=== PATIENT | female | born 1955 | race Caucasian/White ===

== ENCOUNTER 2020-12-01 13:30 | Emergency (ER) | payer OTHER ==
[2020-12-01 13:51] VITALS: BP 123/85
[2020-12-01] MEDS ORDERED: IBUPROFEN 600 MG TABLET PO ONE (13:55)
--- NOTE | 2020-12-01 13:59 | ER Document Report ---
HPI - HPI Time Seen by Provider: 12/01/20 13:49 Context: Patient is a 65-year-old female presents emergency department with a chief complaint of left shoulder pain. States that she was turning off some water and stated a mechanical fall on her left shoulder. Patient has history of hypothyroidism, osteoporosis. - ROS Systems Reviewed and Negative: Yes All other systems reviewed and negative - CONSTITUTIONAL Constitutional: DENIES: Fever, Chills - MUSCULOSKELETAL Musculoskeletal: REPORTS: Extremity pain - left shoulder - DERM Skin Color: Normal Skin Problems: None Past Medical History - General Information source: Patient - Social History Smoking Status: Unknown if Ever Smoked Family History: Reviewed & Not Pertinent Vertical Provider Document - CONSTITUTIONAL Agree With Documented VS: Yes Exam Limitations: No Limitations General Appearance: No Apparent Distress - HEENT HEENT: Atraumatic, Normocephalic, PERRLA - NECK Neck: Normal Inspection - RESPIRATORY Respiratory: Breath Sounds Normal, No Respiratory Distress - CARDIOVASCULAR Cardiovascular: Regular Rate, Regular Rhythm Pulses: Normal: Radial - MUSCULOSKELETAL/EXTREMETIES Musculoskeletal/Extremeties: Tender - Tender left shoulder, No Edema. negative: FROM - Decreased to left shoulder joint - NEURO Level of Consciousness: Awake, Alert, Appropriate Motor/Sensory: No Motor Deficit, No Sensory Deficit - DERM Integumentary: Warm, Dry, No Rash Course - Re-evaluation Re-evalutation: 12/01/20 15:30 Patient has nondisplaced humerus fracture. Sling was given. Advised patient to follow-up with orthopedics. They are in agreement with this plan. Reviewed medication side effects. Daughter agrees to watch over patient. Capillary refill less than 3 seconds. Radial pulse 2+. No vascular compromise noted. Follow-up precautions were given. Verbal discharge instructions were given to the patient. They verbalized understanding. They are stable for discharge. - Vital Signs Vital signs: Temp Pulse Resp BP Pulse Ox 98.6 F 50 L 16 123/85 96 12/01/20 13:49 12/01/20 13:49 12/01/20 13:49 12/01/20 13:49 12/01/20 13:49 - Laboratory Results Critical Laboratory Results Reviewed: No Critical Results - Radiology Results Critical Radiology Results Reviewed: No Critical Results Procedures - Immobilization Left Arm Pre-Proc Neuro Vasc Exam: Normal Immobilizer type: Sling Performed by: PCT Post-Proc Neuro Vasc Exam: Normal, Unchanged from pre-exam Discharge - Discharge Clinical Impression: Fracture, humerus closed Qualifiers: Encounter type: initial encounter Humerus Location: proximal Fracture morphology: other fracture Fracture alignment: nondisplaced Laterality: left Qualified Code(s): S42.295A - Other nondisplaced fracture of upper end of left humerus, initial encounter for closed fracture Condition: Stable Disposition: HOME, SELF-CARE Additional Instructions: You were seen today in the emergency department with left shoulder pain. You have a fracture. Keep the sling on. Follow-up with orthopedics tomorrow. The medication that you are prescribed can make you sleepy. Do not take too many. Only take 1 tablet every 6 hours as needed for pain. Prescriptions: Hydrocodone/Acetaminophen [[place] 5-325 mg Tablet] 1 tab PO ASDIR PRN #6 tablet PRN Reason: Referrals: TERRELL DOWELL JR, DO [ACTIVE PROVISIONAL STAFF] - Follow up tomorrow WILLIAM VINSE MD [NO LOCAL MD] - Follow up tomorrow VALDO PACE MD [ACTIVE STAFF] - Follow up tomorrow
--- NOTE | 2020-12-01 14:32 | RADIOLOGY REPORT (SQ) ---
EXAM DESCRIPTION: ELBOW LEFT OVER 2 VIEWS IMAGES COMPLETED DATE/TIME: 12/01/2020 2:16 pm REASON FOR STUDY: fall; arm pain COMPARISON: None. EXAM PARAMETERS: NUMBER OF VIEWS: Three views. TECHNIQUE: AP, lateral and oblique radiographic images acquired of the left elbow. LIMITATIONS: Oblique positioning on all views. FINDINGS: MINERALIZATION: Osteopenia. BONES: Subtle irregularity of the radial head-neck. JOINTS: No effusion. SOFT TISSUES: No significant soft tissue swelling. No radiopaque foreign body. OTHER: No other significant finding. IMPRESSION: Subtle irregularity of the radial head-neck, possible nondisplaced fracture.Oblique posi tioning on all views. TECHNICAL DOCUMENTATION: JOB ID: [id number] [id number] 2010 [employer]- All Rights Reserved Reading location - IP/workstation name: [facility]
--- NOTE | 2020-12-01 14:35 | RADIOLOGY REPORT (SQ) ---
EXAM DESCRIPTION: SHOULDER LEFT 2 OR MORE VIEWS IMAGES COMPLETED DATE/TIME: 12/01/2020 2:16 pm REASON FOR STUDY: fall; shoulder pain COMPARISON: None. EXAM PARAMETERS: NUMBER OF VIEWS: Three views. TECHNIQUE: AP, lateral and oblique radiographic images acquired of the left shoulder LIMITATIONS: All images are held in oblique positions. FINDINGS: MINERALIZATION: Normal. BONES: No glenohumeral dislocation. Nondisplaced fracture in the proximal humerus -greater tuberosit y. SOFT TISSUES: No significant soft tissue swelling. No radiopaque foreign body. OTHER: No other significant finding. IMPRESSION: Nondisplaced fracture in the proximal humerus -greater tuberosity. TECHNICAL DOCUMENTATION: JOB ID: [id number] 2010 [employer]- All Rights Reserved Reading location - IP/workstation name: [email or web address]
--- OUTSIDE RECORDS SUMMARY | 2020-12-03 10:44 | XMS REPORT ---
:1955 [facility] [place] [address] [place] [id number] Care Team Providers Name Role Phone Diane Petersen Primary Care Physician Unavailable Allergies, Adverse Reactions, Alerts Allergy Name Allergy Status Severity Reaction(s) Onset Inactive Treat ing Comments Type Date Date Clinician Corticosteroi Allergy to Active Mild Edema ds substance (Glucocortico ids) Medications Ordered Filled Start Stop Current Ordering Indication Dosage Frequency Signature Comments Components Medication Medication Date Date Medication? Clinician (SIG) Name Name Synthroid 0 Yes Jack 1 QD Synthroid 112 MCG 05-30 Cano 112 MCG Oral Tablet 00:00: D.O. Oral 00 Tablet TAKE 1 TABLET DAILY. Refills: 0 Jack Cano D.O. Start : 0Active Levothyroxi 0 No Jack Levothyrox ne Sodium 05-29 Rachael ine Sodium 175 MCG 00:00: D.O. 175 MCG Oral Tablet 00 Oral Tablet Take 1 tablet by mouth once daily Quantity: 90 Refills: 0 Jack Cano D.O. Start : 0Active Colace 100 No 1capsul TID Colace 100 mg capsule e(s) mg capsule Take 1 Take 1 capsule 3 capsule 3 times a day times a by oral day by route for oral route 90 days. for 90 days. cyanocobala No 1capsul Q1D cyanocobal min e(s) corley (vitamin (vitamin B-12) 1,000 B-12) mcg capsule 1,000 mcg Take 1 capsule capsule Take 1 every day capsule by oral every day route. by oral route. duloxetine No 1capsul Q1D duloxetine 30 mg e(s) 30 mg capsule,del capsule,de ayed layed release release Take 1 Take 1 capsule capsule every day every day by oral by oral route. route. furosemide No 1 Q1D furosemide 20 mg 20 mg tablet Take tablet 1 tablet Take 1 every day tablet by oral every day route as by oral needed. route as needed. Synthroid No 1 Q1D Synthroid 112 mcg 112 mcg tablet Take tablet 1 tablet Take 1 every day tablet by oral every day route. by oral route. Zoloft 50 No 1 Q1D Zoloft 50 mg tablet mg tablet Take 1 Take 1 tablet tablet every day every day by oral by oral route. route. ciclopirox No ciclopirox 8 % topical 8 % solution topical APPLY TO solution THE APPLY TO AFFECTED THE AREA(S) BY AFFECTED TOPICAL AREA(S) BY ROUTE ONCE TOPICAL DAILY ROUTE ONCE PREFERABLY DAILY AT BEDTIME PREFERABLY OR 8 HOURS AT BEDTIME BEFORE OR 8 HOURS WASHING BEFORE WASHING Claritin 10 No 1 Q1D Claritin mg tablet 10 mg Take 1 tablet tablet Take 1 every day tablet by oral every day route. by oral route. ibuprofen No 1 TID ibuprofen 800 mg 800 mg tablet Take tablet 1 tablet 3 Take 1 times a day tablet 3 by oral times a route as day by needed. oral route as needed. Synthroid No 1 Q1D Synthroid 125 mcg 125 mcg tablet Take tablet 1 tablet Take 1 every day tablet by oral every day route. by oral route. Vitamin D2 No 1capsul Q1W Vitamin D2 1,250 mcg e(s) 1,250 mcg (50,000 (50,000 unit) unit) capsule capsule Take 1 Take 1 capsule capsule every week every week by oral by oral route. route. Euthyrox No Euthyrox 112 mcg 112 mcg tablet TAKE tablet 1 TABLET BY TAKE 1 MOUTH ONCE TABLET BY DAILY MOUTH ONCE DAILY Euthyrox No Euthyrox 125 mcg 125 mcg tablet TAKE tablet 1 TABLET BY TAKE 1 MOUTH ONCE TABLET BY DAILY MOUTH ONCE DAILY hydrocodone No 1 Q6H hydrocodon 5 e 5 mg-acetamin mg-acetami ophen 325 nophen 325 mg tablet mg tablet Take 1 Take 1 tablet tablet every 6 every 6 hours by hours by oral route oral route as needed. as needed. 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 00 Joint pain Joint pain Problem Active of lower of lower extremity extremity Low vitamin Low vitamin Problem Active D level D level Abnormal Abnormal Problem Active gait gait Gait, Gait, Problem Active broad-based broad-based Cautious Cautious Problem Active gait gait Dyspnea Dyspnea Problem Active 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, disorder, mild, abuse mild, abuse Abnormal Abnormal Problem Active urinalysis urinalysis Cigarette Cigarette Problem Active nicotine nicotine dependence dependence with with nicotine-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 Hepatitis C Hepatitis C Problem Active antibody antibody test test positive positive Osteopenia Osteopenia Problem Active of multiple of multiple sites sites Chronic Chronic Problem Active pain of pain of multiple multiple joints joints Procedures Procedure Date / Time Performed Performing Clinician Abdullahi alcala pulse oximetry (PROC) 2020-12-02 00:00:00 pulse oximetry (PROC) 2020-11-06 00:00:00 pulse oximetry (PROC) 2020-10-21 00:00:00 L - Hepatitis C Virus (HCV) RNA, 2020-05-30 00:00:00 Qualitative, MING With Reflex to Quantitative PCR CBC 2020-05-29 00:00:00 CMP(Complete Metabolic Panel) 2020-05-29 00:00:00 CRP 2020-05-29 00:00:00 Free T4 2020-05-29 00:00:00 L - CCP Antibodies IgG/IgA 2020-05-29 00:00:00 L - Chlamydia/GC Amplification 2020-05-29 00:00:00 L - Doctor Wendys Hepatitis Panel 2020-05-29 00:00:00 (HP4+HBsAb) L - HLA B 27 Disease Association 2020-05-29 00:00:00 L - QuantiFERON Client Incubated 2020-05-29 00:00:00 Rheumatoid Factor 2020-05-29 00:00:00 Sed Rate 2020-05-29 00:00:00 TSH 2020-05-29 00:00:00 Uric Acid 2020-05-29 00:00:00 Urinalysis 2020-05-29 00:00:00 L - Prot+CreatU (Random) 2020-05-29 00:00:00 L - YASMEEN w/Reflex if Positive 2020-05-29 00:00:00 Vitamin D Total 2020-05-29 00:00:00 Vitamin B12 2020-05-29 00:00:00 L - Drug Profile (12) Screen & 2020-05-29 00:00:00 Confirm, Urine Urine Culture 2020-05-29 00:00:00 Breast Biopsy 2006-11-08 00:00:00 History of Exploratory laparoscopy History of Eye surgery CONT PAS MOTION EXERCISE DEV Eye Surgery Lumpectomy of Breast Tubal Ligation Results Test Description Test Time Test Comments Text Results Atomic Results Result Comments Lipid 1996 panel - Serum or Plasma 2020-10-22 00:00:00 Test Item Value Reference Range Comments Cholesterol [Mass/volume] in Serum or Plasma (test code 265 mg/d L <200 = 2093-3) Cholesterol in HDL [Mass/volume] in Serum or Plasma 63 mg/dL > or = 50 (test code = 2085-9) Triglyceride [Mass/volume] in Serum or Plasma (test code 66 mg/d L <150 = 2571-8) Cholesterol in LDL [Mass/volume] in Serum or Plasma by 185 mg/dL (calc) calculation (test code = 52545-6) Cholesterol.total/Cholesterol.in HDL [Mass ratio] in 4.2 (calc) <5.0 Serum or Plasma (test code = 9830-1) Cholesterol in LDL/Cholesterol in HDL [Mass Ratio] in 2.9 (calc) Serum or Plasma (test code = 47194-1) Cholesterol non HDL [Mass/volume] in Serum or Plasma 202 mg/dL ( calc) <130 (test code = 64843-0) Comprehensive metabolic 2000 panel - Serum or [id number] 00:00:00 Test Item Value Reference Range Comments Glucose [Mass/volume] in Serum or Plasma 107 mg/dL 65-99 (test code = 2345-7) Urea nitrogen [Mass/volume] in Serum or 19 mg/dL 7-25 Plasma (test code = 3094-0) Creatinine [Mass/volume] in Serum or Plasma 0.93 mg/dL 0.50 -0.99 (test code = 2160-0) Glomerular filtration rate/1.73 sq 64 mL/min/1.73m2 > or = 60 M.predicted [Volume Rate/Area] in Serum, Plasma or Blood by Creatinine-based formula (MDRD) (test code = 14775-9) Glomerular filtration rate/1.73 sq 75 mL/min/1.73m2 > or = 60 M.predicted among blacks [Volume Rate/Area] in Serum, Plasma or Blood by Creatinine-based formula (MDRD) (test code = 72889-6) Urea nitrogen/Creatinine [Mass Ratio] in not applicable 6-22 Serum or Plasma (test code = 3097-3) Sodium [Moles/volume] in Serum or Plasma 142 mmol/L 135-146 (test code = 2951-2) Potassium [Moles/volume] in Serum or Plasma 3.9 mmol/L 3.5- 5.3 (test code = 2823-3) Chloride [Moles/volume] in Serum or Plasma 110 mmol/L 98-11 0 (test code = 2075-0) Carbon dioxide, total [Moles/volume] in 21 mmol/L 20-32 Serum or Plasma (test code = 2027-9) Calcium [Mass/volume] in Serum or Plasma 9.1 mg/dL 8.6-10. 4 (test code = 58810-0) Protein [Mass/volume] in Serum or Plasma 7.2 g/dL 6.1-8.1 (test code = 2885-2) Albumin [Mass/volume] in Serum or Plasma 4.3 g/dL 3.6-5.1 (test code = 1751-7) Globulin [Mass/volume] in Serum by 2.9 g/dL (calc) 1.9-3.7 calculation (test code = 72866-6) Albumin/Globulin [Mass Ratio] in Serum or 1.5 (calc) 1.0-2. 5 Plasma (test code = 1759-0) Bilirubin.total [Mass/volume] in Serum or 0.4 mg/dL 0.2-1. 2 Plasma (test code = 1974-) Alkaline phosphatase [Enzymatic 43 U/L 37-153 activity/volume] in Serum or Plasma (test code = 6768-6) Aspartate aminotransferase [Enzymatic 13 U/L 10-35 activity/volume] in Serum or Plasma (test code = 1920-8) Alanine aminotransferase [Enzymatic 8 U/L 6-29 activity/volume] in Serum or Plasma (test code = 1742-6) CBC W Auto Differential panel - [id number] 00:00:00 Test Item Value Reference Range Comments Leukocytes [#/volume] in Blood by Automated 5.2 thousand/uL 3.8- 10.8 count (test code = 6690-2) Erythrocytes [#/volume] in Blood by 4.88 million/uL 3.80-5.10 Automated count (test code = 789-8) Hemoglobin [Mass/volume] in Blood (test code 14.3 g/dL 11. 7-15.5 = 718-7) Hematocrit [Volume Fraction] of Blood by 43.3 % 35.0-45 .0 Automated count (test code = 4544-3) Erythrocyte mean corpuscular volume [Entitic 88.7 fL 80. 0-100.0 volume] by Automated count (test code = 787-2) Erythrocyte mean corpuscular hemoglobin 29.3 pg 27.0-33. 0 [Entitic mass] by Automated count (test code = 785-6) Erythrocyte mean corpuscular hemoglobin 33.0 g/dL 32.0-36. 0 concentration [Mass/volume] by Automated count (test code = 786-4) Erythrocyte distribution width [Ratio] by 13.4 % 11.0-1 5.0 Automated count (test code = 788-0) Platelets [#/volume] in Blood by Automated 197 thousand/uL 140-4 00 count (test code = 777-3) Platelet mean volume [Entitic volume] in 10.4 fL 7.5-12. 5 Blood by Chema (test code = 776-5) Neutrophils [#/volume] in Blood by Automated 3073 cells/uL 150 0-7800 count (test code = 751-8) Lymphocytes [#/volume] in Blood by Automated 1617 cells/uL 850 -3900 count (test code = 731-0) Monocytes [#/volume] in Blood by Automated 380 cells/uL 200-9 50 count (test code = 742-7) Eosinophils [#/volume] in Blood by Automated 88 cells/uL 15- 500 count (test code = 711-2) Basophils [#/volume] in Blood by Automated 42 cells/uL 0-200 count (test code = 704-7) Neutrophils/100 leukocytes in Blood by 59.1 % Automated count (test code = 770-8) Lymphocytes/100 leukocytes in Blood by 31.1 % Automated count (test code = 736-9) Monocytes/100 leukocytes in Blood by 7.3 % Automated count (test code = 5905-5) Eosinophils/100 leukocytes in Blood by 1.7 % Automated count (test code = 713-8) Basophils/100 leukocytes in Blood by 0.8 % Automated count (test code = 706-2) Triiodothyronine (T3) [Mass/volume] in Serum or [id number] 00:00:00 Test Item Value Reference Range Comments Triiodothyronine (T3) [Mass/volume] in Serum or 68 NG/dL 76-181 Plasma (test code = 3053-6) Thyroxine (T4) free [Mass/volume] in Serum or [id number] 00:00:00 Test Item Value Reference Range Comments Thyroxine (T4) free [Mass/volume] in Serum or 1.1 NG/dL 0. 8-1.8 Plasma (test code = 3024-7) Thyrotropin [Units/volume] in Serum or [id number] 00:00:00 Test Item Value Reference Range Comments Thyrotropin [Units/volume] in Serum or Plasma 9.79 mIU/L 0. 40-4.50 (test code = 3016-3) Folate+Cyanocobalamin [Interpretation] in Serum or [id number] 00:00:00 Test Item Value Reference Range Comments Cobalamin (Vitamin B12) [Mass/volume] in Serum or 612 pg/mL 200-1100 Plasma (test code = 2132-9) Folate [Mass/volume] in Serum or Plasma (test 10.1 NG/mL code = 2284-8) 25-Hydroxyvitamin D3+25-Hydroxyvitamin D2 [Mass/volume] in Serum or Plasma 2020-10-22 00:00:00 Test Item Value Reference Range Comments 25-hydroxyvitamin D3 [Mass/volume] in Serum or 22 NG/mL 3 0-100 Plasma (test code = 1989-3) Hemoglobin A1c/Hemoglobin.total in [id number] 00:00:00 Test Item Value Reference Range Comments Hemoglobin A1c/Hemoglobin.total in Blood 4.9 % of total HGB <5.7 (test code = 4548-4) Urine [id number] 11:26:00 Test Item Value Reference Range Comments Final Report (test Microbiology results [place] [facility][05/31/2020 code = Final Report) 9:05 AM PA] >100,000 cfu/mlResult[05/09 9:05 AM PA] Mixe d culture, suggestive of contamination. P lease resubmit if nece ssary., No Further Work-up CMP(Complete Metabolic Panel)2020-05-29 11:05:00 Test Item Value Reference Range Comments Glucose (test code = Glucose) 106 mg/dL 74-106 Sodium (test code = Sodium) 142 mmol/L 135-145 Potassium (test code = Potassium) 3.2 mmol/L 3.5-5.3 Chloride (test code = Chloride) 104 mmol/L 98-107 CO2 (test code = CO2) 26 mmol/L 22-30 Creatinine, serum (test code = Creatinine, serum) 0.80 mg/dL 0.10-1.04 Glomerular Filtration Rate (test code = >60 >60 Glomerular Filtration Rate) Glomerular Filtration Rate AA (test code = >60 >60 Glomerular Filtration Rate AA) Blood Urea Nitrogen (test code = Blood Urea 15 mg/dL 7-17 Nitrogen) Calcium (test code = Calcium) 10.1 mg/dL 8.4-10.5 Phosphorus (test code = Phosphorus) 3.0 mg/dL 2.5-4.5 Total Protein (test code = Total Protein) 8.5 g/dL 6.3-8. 2 Albumin; Above High Threshold (test code = 5.2 g/dL 3.5-5 .0 30247-1) Total Bilirubin (test code = Total Bilirubin) 0.8 mg/dL 0. 2-1.3 Bilirubin, unconj (test code = Bilirubin, unconj) 0.5 mg/dL 0.0-1.1 Bilirubin, Direct (test code = Bilirubin, Direct) 0.3 mg/dL 0.0-0.4 Alkaline Phosphatase (test code = Alkaline 66 U/L 20-15 0 Phosphatase) Alanine Transaminase (test code = Alanine 22 U/L 0-35 Transaminase) Aspartate Aminotransferase (test code = Aspartate 38 U/L 3-36 Aminotransferase) [id number] 11:05:00 Test Item Value Reference Range Comments C-Reactive Protein (test code = C-Reactive Protein) <5 <10 Free [id number] 11:05:00 Test Item Value Reference Range Comments Free T4 (test code = Free T4) 1.84 ng/dL 0.78-2.19 Rheumatoid [id number] 11:05:00 Test Item Value Reference Range Comments Rheumatoid Factor (test code = Rheumatoid Factor) 9 {IU/mL} <11 Thyroid Stimulating [id number] 11:05:00 Test Item Value Reference Range Comments Thyroid Stimulating Hormone (test code = 14.70 {mIU/mL} 0.46-4. 68 Thyroid Stimulating Hormone) Uric [id number] 11:05:00 Test Item Value Reference Range Comments Uric Acid (test code = Uric Acid) 4.6 mg/dL 2.5-6.2 Vitamin D [id number] 11:05:00 Test Item Value Reference Range Comments Vitamin D, total (test code = Vitamin D, total) 43 ng/mL 30-100 Vitamin [id number] 11:05:00 Test Item Value Reference Range Comments Vitamin B12 (test code = Vitamin B12) 727 pg/mL 239-931 [id number] 10:52:00 Test Item Value Reference Range Comments Urine Color (test code = Urine YELLOW Yellow Color) Urine Clarity (test code = CLEAR Clear Urine Clarity) Urine Glucose (test code = NEGATIVE Negative Urine Glucose) Urine Ketones (test code = TRACE Negative Urine Ketones) Urine Bilirubin (test code = SMALL Negative Genny ble to perform Ictotest Urine Bilirubin) due to reagent unavailable from manufacture r. Urine Specific [place] (test 1.030 1.010-1.030 URI NE MICROSCOPIC: 6-10 code = Urine Specific [place]) W BCS,3-5 RBCS,MODERATE BACTERIA Urine Blood (test code = Urine SMALL Negative Blood) Urine pH (test code = Urine 6.0 5.0-8.0 pH) Urine Protein (test code = 30 mg/dL Negative Urine Protein) Urine Urobilinogen (test code 2.0 Eu/dl 0.2 = Urine Urobilinogen) Urine Nitrites (test code = NEGATIVE Negative Urine Nitrites) Urine Leukocytes (test code = NEGATIVE Negative Urine Leukocytes) [id number] 10:52:00 Test Item Value Reference Range Comments White Blood Cell (test code = White Blood Cell) 10.1 K/uL 3.5-11.1 Red Blood Cell (test code = Red Blood Cell) 5.15 {M/uL} 3.69 -4.87 Hemoglobin (test code = Hemoglobin) 14.8 g/dL 11.4-14.4 Hematocrit (test code = Hematocrit) 45 % 33-41 Mean Corpuscular Volume (test code = Mean 87.8 fL 79.0-9 5.0 Corpuscular Volume) Mean Corpuscular Hemoglobin (test code = Mean 28.7 pg/mL 27 .0-33.0 Corpuscular Hemoglobin) Mean Corpuscular Hemoglobin Concentration (test 32.7 g/dL 33.5-35.5 code = Mean Corpuscular Hemoglobin Concentration) Red Cell Distribution Width (test code = Red 13.6 % 12. 0-15.0 Cell Distribution Width) Platelet (test code = Platelet) 203 K/uL 130-353 Mean Platelet Volume (test code = Mean Platelet 10.2 fL 7.5-10.7 Volume) Neutrophil Count, absolute (test code = 8.6 K/uL 1.9-7.2 Neutrophil Count, absolute) Neutrophil Count Percentage (test code = 84.9 % 43.0-72 .0 Neutrophil Count Percentage) Lymphocyte Count, absolute (test code = 0.8 K/uL 1.1-2.7 Lymphocyte Count, absolute) Lymphocyte Count Percentage (test code = 8.0 % 17.0-44 .0 Lymphocyte Count Percentage) Monocyte Count, absolute (test code = Monocyte 0.6 K/uL 0 .3-0.8 Count, absolute) Monocyte Count Percentage (test code = Monocyte 6.3 % 4.5-12.4 Count Percentage) Eosinophil Count, absolute (test code = 0.0 K/uL 0.0-0.5 Eosinophil Count, absolute) Eosinophil Count Percentage (test code = 0.2 % 0.7-7.8 Eosinophil Count Percentage) Basophil Count, absolute (test code = Basophil 0.0 K/uL 0 .0-0.1 Count, absolute) Basophil Count Percentage (test code = Basophil 0.3 % 0.2-1.1 Count Percentage) Nucleated Red Blood Cell, absolute (test code = 0.00 K/uL 0.00-0.00 Nucleated Red Blood Cell, absolute) Nucleated Red Blood Cell, percentage (test code 0.00 % 0.00-0.00 = Nucleated Red Blood Cell, percentage) Sed [id number] 10:52:00 Test Item Value Reference Range Comments Erythrocyte Sedimentation Rate (test code = 5 {mm/hr} 0-30 Erythrocyte Sedimentation Rate) Hep A Ab, [id number] 10:52:00 Test Item Value Reference Range Comments Hep A Ab, IgM (test code = Negative Negative 21687-5) HBsAg Screen (test code = Negative Negative 5196-1) Hep B Core Ab, IgM (test Negative Negative code = 06700-5) Hep B Surface Ab, Qual Reactive Non (test code = 92860-2) Reactive: Inconsistent with immunity, less than 10 mIU/mL Reactive: C onsistent with immunity, greater than 9.9 mIU/mL Comment: (test code = Comment 0.0-0.9 Strong zac ctive antibody screen 72934-1) (s/c ratio >10.9 ) isconsistent with past or pre sent HCV infection. Foll ow-uptesting by HCV, Quantitativ e, Real time PCR (#[id number]) isreco mmended to determine viral load/diagnosis of currentHCV infec tion. [facility] performed at: [] [address], [address], , Civil Engineer Helper: Arlene Coe MDLabcorp - YASMEEN w/Reflex if [id number] 10:52:00 Test Item Value Reference Range Comments YASMEEN Direct (test code = 8061-4) Negative Negative [facility] performed at: [] [address], [address], , Civil Engineer Helper: ISAIAS Andinoreatinine, [id number] 10:52:00 Test Item Value Reference Range Comments Creatinine, Urine (test code = 2161-8) 266.2 mg/dL Not Estab . Protein,Total,Urine (test code = 2888-6) 71.8 mg/dL Not Est ab. Protein/Creat Ratio (test code = 270 {mg/g creat} 0-200 Protein/Creat Ratio) [facility] performed at: [] [address], [address], , Civil Engineer Helper: Arlene Coe MDL - CCP Antibodies [id number] 10:52:00 Test Item Value Reference Range Comments CCP Antibodies IgG/IgA (test 5 {Units} 0-19 code = 44522-3) Nega tive <20 Weak positive 20 - 39 Moderate pos itive 40 - 59 [facility] >59 [facility] at: [] [address], [address], , Civil Engineer Helper: Arlene Coe MDQuantiFERON [id number] 10:52:00 Test Item Value Reference Range Comments QuantiFERON Criteria (test Comment The Q uantiFERON-TB Gold Plus code = QuantiFERON result is det ermined Criteria) bysubtracting th e Nil value from either TB a ntigen (Ag) tube.The mitogen tube serves as a control for the test. QuantiFERON TB1 Ag Value 0.02 {IU/mL} (test code = QuantiFERON TB1 Ag Value) QuantiFERON TB2 Ag Value 0.01 {IU/mL} (test code = QuantiFERON TB2 Ag Value) QuantiFERON Nil Value (test 0.01 {IU/mL} code = QuantiFERON Nil Value) QuantiFERON Mitogen Value 4.96 {IU/mL} (test code = QuantiFERON Mitogen Value) QuantiFERON-TB Gold Plus Negative Negative The spe cimen received for (test code = QuantiFERON-TB Tyson tiFERON testing was Gold Plus) incubatedby the ordering institution. Sp ecific procedures outli nedin our Directory of Ser vices and in the package inse rt forthe QuantiFERON Gold (In Tube) test must be fol lowed toenable for pro per stimulation of deisy keenan for the productionof int erferon gamma. [facility] performed at: [BN] [address], [address], , Civil Engineer Helper: Arlene Coe MDL - Chlamydia/GC [id number] 10:52:00 Test Item Value Reference Range Comments Chlamydia trachomatis, MING (test code = 47245-4) Negative Negative Neisseria gonorrhoeae, MING (test code = 28122-3) Negative Negative [facility] at: [] [address], [address], , Civil Engineer Helper: Arlene Coe [facility] performed at: [BN] [address], [address], , Civil Engineer Helper: Arlene Coe MDL - Drug Profile (12) Screen & Confirm, [id number] 10:52:00 Test Item Value Reference Range Comments Ethanol, Urine (test Negative Cutoff=0.020 code = Ethanol, Urine) Amphetamines, Urine Negative Iywuwt=0326 Amphetamine test includes (test code = 75987-9) Amphetamin e and Methamphetamine. Barbiturate (test code Negative Exgegm=738 = Barbiturate) Benzodiazepines (test Negative Swvrwk=223 code = Benzodiazepines) Cannabinoids (test See Final Cutoff=20 code = Cannabinoids) Results Cannabinoid (test code Positive Cutoff=20 = Cannabinoid) Carboxy THC GC/MS Conf >400 Cutoff=10 (test code = Carboxy THC GC/MS Conf) Cocaine (Metabolite) Negative Cullld=219 (test code = Cocaine (Metabolite)) Opiates (test code = Negative Qohmma=887 Opiate test includes Codeine, 75236-3) Morphine, Hydrom orphone, Hydrocodone. Oxycodone/Oxymorphone, Negative Yjvarb=269 Test incl udes Oxycodone and Urine (test code = Oxymorphone 56096-0) Phencyclidine (test Negative Cutoff=25 code = Phencyclidine) Methadone (test code = Negative Tjjvjq=206 Methadone) Propoxyphene (test Negative Rldpch=445 code = Propoxyphene) Meperidine (test code Negative Yeotul=869 This test was developed and its = Meperidine) performance characteristicsd etermined by [facility]. It has not been cleared orapproved by [facility] Food and Drug Administration. Tramadol (test code = Negative Kphqxz=150 Tramadol) Creatinine, Urine 280.7 mg/dL 20.0-300.0 (test code = 2161-8) [facility] performed at: [UI] [facility], [address] [place] [address], [address], , Civil Engineer Helper: Zeinab Gómez, PhDLab[facility] - HLA B 27 Disease [id number] 10:52:00 Test Item Value Reference Range Comments HLA-B27 (test code = Negative HLA-B*27 Ne oihnlfN74 allele 92079-8) interpretation f or all loci based on IMGT/HLAdatabase version 3.38This test was developed an d its performance characteristicsd etermined by [facility]. It has not been cleared or approvedby the Food and Anastacio g Administration.[facility] Lab CLIA ID Number [id number] test was performed using PCR (Polymerase ChainReaction)/S SOP (Sequence Specific Oligonucleotide Probes)technique. SBT (Sequence Based Typing) and/or SSP(Sequence Spe cific Primers) may be used as suppleme ntalmethods when necessary. Plea se contact HLA CustomerService at if you have any questio ns. Director of HLA Laboratory Dr Napoleon Hoang, PhD [facility] performed at: [2Q] [facility], [address] [place] [address], [phone], , Civil Engineer Helper: Palomo Hoang, PhD Assessments Condition Name Status Diagnosis Date Treating Clinici an Closed fracture of upper end of humerus Active 10:43:54 Pain in left arm Active 2020-12-02 13:26:54 Falling injury Active 2020-12-02 13:27:00 Hypothyroidism Active 2020-11-06 12:55:16 Vitamin D deficiency Active 2020-11-06 12:56:19 Cobalamin deficiency Active 2020-11-06 12:09:39 Allergic rhinitis Active 2020-11-06 12:56:48 Generalized anxiety disorder Active 2020-11-06 16:06:50 Chronic constipation Active 2020-10-21 11:44:01 Cobalamin deficiency Active 2020-10-21 12:14:10 Chronic pain syndrome Active 2020-10-21 12:14:53 Central pontine myelinolysis Active 2020-10-21 12:15:03 Edema Active 2020-10-21 12:15:07 Hypothyroidism Active 2020-10-21 11:43:59 Anxiety Active 2020-10-21 11:44:00 B12 deficiency Active Low vitamin D level Active History of marijuana use Active Osteopenia of multiple sites Active Tetrahydrocannabinol (THC) use Active disorder, mild, abuse Gait, broad-based Active Chronic pain of multiple joints Active Cigarette nicotine dependence with Active nicotine-induced disorder Family history of arthritis Active Joint pain of lower extremity Active Active Dyspnea Active Abnormal gait Active Hyponatremia Active Family history of amyotrophic lateral Active sclerosis Cautious gait Active History of depression Active Encounters Start End Encounter Admission Attending Care Care Encounter Date/Time Date/Time Type Type Clinicians Facility Department ID 2020-12-02 2020-12-02 [facility] [id number] 00:00:00 00:00:00 PRICILA Sharma: [facility] & [address] [place] [address], Ph. 2020-11-06 2020-11-06 [facility] [id number] 00:00:00 00:00:00 PRICILA Sharma: [facility] & [address] [place] [address], Ph. 2020-10-21 2020-10-21 [facility] [id number] 00:00:00 00:00:00 PRICILA Sharma: [facility] & [address] [place] [address], [place] [address], Ph. 2020-10-01 2020-10-01 Appointment [facility] [id number] 10:00:00 10:46:00 ; Jack Cano D.O. 2020-10-01 2020-10-01 Appointment [facility] [id number] 09:00:00 09:00:00 ; Pulmonary, Functions 2020-05-29 2020-05-29 Appointment [facility] [id number] 09:00:00 09:00:00 ; Jack Cano D.O. Family History Family Member Diagnosis Comments Start Date Stop Date Mother Family history of arthritis Father Family history of arthritis Sister Family history of amyotrophic lateral sclerosis Immunizations Ordered Immunization Filled Immunization Date Status Commen ts Refusal Reason Name Name zoster recombinant Unknown Completed Plan of Treatment Planned Activity Planned Date Details Comments Future Appointment 2021-02-20 09:00:[address]; , [place] [address] Future Appointment 2020-12-24 10:30:00 Cong Sharma [address] [place] [address]; , [place] [address] Future Appointment 2020-12-17 10:00:00 Nurse, [address] [place] [address] ; , [place] [address] Social History Smoking Status Start Date Stop Date Smoker (finding) Never Smoker Vital Signs Vital Name Observation Time Observation Value Comments BP Diastolic 2020-12-02 00:00:00 78 mm[Hg] Height 2020-12-02 00:00:00 62 [in_i] BMI (Body Mass Index) 2020-12-02 00:00:00 21 kg/m2 BP Systolic 2020-12-02 00:00:00 128 mm[Hg] Body Weight 2020-12-02 00:00:00 115 [lb_av] BP Diastolic 2020-11-06 00:00:00 94 mm[Hg] Height 2020-11-06 00:00:00 62 [in_i] BMI (Body Mass Index) 2020-11-06 00:00:00 20.1 kg/m2 BP Systolic 2020-11-06 00:00:00 174 mm[Hg] Body Weight 2020-11-06 00:00:00 109.8 [lb_av] BP Diastolic 2020-10-21 00:00:00 81 mm[Hg] Height 2020-10-21 00:00:00 62 [in_i] BMI (Body Mass Index) 2020-10-21 00:00:00 20.4 kg/m2 BP Systolic 2020-10-21 00:00:00 147 mm[Hg] Body Weight 2020-10-21 00:00:00 111.6 [lb_av] Systolic blood pressure 2020-05-29 10:08:00 110 mm[Hg] Diastolic blood pressure 2020-05-29 10:08:00 70 mm[Hg] Body height 2020-05-29 10:08:00 62 [in_us] Weight 2020-05-29 10:08:00 105.375 [lb_av] Body mass index (BMI) [Ratio] 2020-05-29 10:08:00 19.27 kg/m2 Body temperature 2020-05-29 10:08:00 97.3 [degF] Heart Rate 2020-05-29 10:08:00 70 /min Respiratory rate 2020-05-29 10:08:00 16 /min O2 SAT 2020-05-29 10:08:00 99 % Source: Hospital Discharge Instructions 1. Hypothyroidism Synthroid 112 mcg tablet pulse oximetry (PROC) 2. Anxiety Zoloft 50 mgtablet 3. Chronic constipation Colace 100 mg capsule 4. Cobalamin deficiency cyanocobalamin (vitamin B-12) 1,000 mcg capsule 5. Chronic pain syndrome 6. Central pontine myelinolysis 7. Edema furosemide 20 mg tablet leg and ankle edema: care instructions Discussion Note Complexity of Patient Visit: Moderate Due to current active problems, medications required and patient education Established Patient/Med Check & Follow-up Care Visit. Reviewed pertinent diagnoses at length including counseling and reassurance. Discussed risks, potential side effects and benefits of current treatment plan and medications. All patient questions and concerns were addressed and answered. Patient verbalized understanding and agreement with treatment plans. NameDatesDetailsInstructions not documentedNameDatesDetailsInstructions not documented
== END 2020-12-01 15:24 | disposition home or self-care (01) ==
LOC: ER 13:30
DX: S42.255A Nondisplaced fracture of greater tuberosity of left humerus, initial encounter for closed fracture (principal); W18.2XXA Fall in (into) shower or empty bathtub, initial encounter; Y93.89 Activity, other specified
CPT/HCPCS: 99284